=== PATIENT | male | born 1995 | race Hispanic/Latino ===

== ENCOUNTER 2016-11-29 08:04 | Emergency (ER) | payer SELFPAY ==
[~2016-11-29] VITALS: Ht 157.5 cm; Wt 54.2 kg
[~2016-11-29 08:04] MED LIST: ZOFRAN ODT4 MG PO
[2016-11-29 08:43] LABS: ADD MIUA? YES; BILIRUBIN NEGATIVE; BLOOD LARGE; COLOR YELLOW ((YELLOW)); GLUCOSE (STRIP) NEGATIVE; KETONES NEGATIVE; LEUKOCYTES TRACE; NITRITE NEGATIVE; PROTEIN (STRIP) NEGATIVE; SPECIFIC GRAVITY 1.002 (1.000-1.030); UROBILINOGEN 0.2 MG/DL (0.2-1.0)
[2016-11-29 08:52] LABS: BACTERIA RARE /HPF; EPITHELIAL CELLS NONE SEEN /HPF; MUCUS NONE SEEN /LPF; RED BLOOD CELLS 40-50 /HPF (0-5); UCUL ADDED? NO; WHITE BLOOD CELLS 0-5 /HPF (0-5)
[2016-11-29 09:48] VITALS: BP 128/76
[2016-11-30 11:42] LABS: CHLAMYDIA TRACHOMATIS POSITIVE; NEISSERIA GONORRHOEAE NEGATIVE
== END 2016-11-29 09:49 | disposition home or self-care (01) ==
LOC: EME 08:04
PROVIDERS: Physician Assistant Medical
DX: N34.2 Other urethritis (principal); I25.2 Old myocardial infarction; Z87.891 Personal history of nicotine dependence
CPT/HCPCS: 81003; 87491; 87591; 99281; 99283; J0696